=== PATIENT | male | born 1990 | race Hispanic/Latino ===

== ENCOUNTER 2018-05-29 09:08 | Emergency (ER) | payer BC ==
[2018-05-29 10:11] LABS: #Eosinphils 0.1 thou/uL (0.0-0.7); #Lymphocytes 1.6 thou/uL (1.20-3.40); #Monocytes 0.4 thou/uL (0.11-0.59); #Neutrophils 3.3 thou/uL (1.40-6.50); %Basophils 0.2 % (0.0-1.0); %Eosinophils 1.9 % (0.0-10.0); %Lymphocytes 30.1 % (21.0-51.0); %Monocytes 6.6 % (0.0-10.0); %Neutrophils 61.2 % (42.0-75.0); Hemoglobin 13.6 g/dL (14.0-18.0); Mean Corpuscular HGB CONC 33.5 g/dL (32.0-36.0); Mean Corpuscular Hemoglobin 28.9 pg (27.0-31.0); Mean Corpuscular Volume 86.2 fL (78.0-98.0); Mean Platelet Volume 6.5 fL (7.4-10.4); Platelet Count 281 thou/uL (130-400); RBC Distribution Width 13.2 % (11.5-14.5); Red Blood Cell (RBC) Count 4.69 mill/uL (4.70-6.10); White Blood Cell (WBC) Count 5.4 thou/uL (4.8-10.8)
[2018-05-29 10:23] LABS: ALT (SGPT) 77 U/L (8-55); AST (SGOT) 39 U/L (5-34); Albumin 4.3 g/dL (3.5-5.0); Alkaline Phosphatase 266 U/L (40-150); Anion Gap 15 mmol/L (10-20); BUN (Urea Nitrogen) 17 mg/dL (8.9-20.6); Bilirubin, Total 0.6 mg/dL (0.2-1.2); Calc. Creatinine Clearance 0 mL/min (70-130); Calcium 9.3 mg/dL (7.8-10.44); Carbon Dioxide 22 mmol/L (22-29); Chloride 103 mmol/L (98-107); Estimated GFR-MDRD Greater than 90; Glucose 99 mg/dL (70-105); Protein, Total 9.3 g/dL (6.0-8.3); Sodium 136 mmol/L (136-145)
[2018-05-29 10:24] LABS: Bilirubin Negative (Negative); Blood, Urine Negative (Negative); Clarity CLOUDY (Clear); Glucose, Urine (Dipstick) Negative (Negative); Leukocyte Negative (Negative); Nitrite Negative (Negative); Protein, Urine (Dipstick) 30 mg/dL (Neg-Trace); Specific Gravity, Urine 1.024 (1.002-1.036)
[2018-05-29 10:29] LABS: Bacteria/HPF None Seen HPF (None Seen); Hyaline Casts/LPF 0-3 HYALINE CAST LPF (0-3 Hyaline); RBC/HPF 0-3 HPF (0-3); Squamous Epithelial 0-3 HPF (0-3); WBC/HPF 0-3 HPF (0-3)
[2018-05-29 11:42] LABS: Syphilis Antibody Index 26.86 S/CO (<1.00 Non-Reactive)
[2018-05-29 12:17] LABS: HIV (1/2) Antibody/Antigen Reflxed Confirmation (NonReactive)
[2018-05-29] MEDS ORDERED: Bicillin LA 2.4 MILL.UNITS/4 ML SYRINGE ONE (13:54)
[2018-05-29 18:16] LABS: Syphilis Antibody REACTIVE (Nonreactive); Syphilis Titer 1:32 (Negative)
[2018-05-30 12:40] LABS: Reference Lab Name LABCORP
[2018-05-30 12:41] LABS: Ref Lab Test Ordered HIV PHENOSENSE GT
[2018-05-30 13:19] LABS: %CD4 (Helper/Inducer) 7.1 % (30.8-58.5); Absolute CD4 114 /uL (359-1519); Lymphocytes/Gated Cell Count 1.6 x10E3/uL (0.7-3.1); Total Lymphocyte 39 % (Not Estab.); WBC Total Count 4.2 x10E3/uL (3.4-10.8)
[2018-05-30 15:29] LABS: HIV 1 Antibody Multi-Spot Positive (Negative); HIV 2 Antibody Multi-Spot Negative (Negative); HIV Multi-spot Interp HIV-1 Positive (.)
[2018-05-31 21:09] LABS: LOG10 HIV-1 RNA 5.29 (.)
== END 2018-05-29 15:41 | disposition home or self-care (01) ==
LOC: ERS 09:08
DX: A53.9 Syphilis, unspecified (principal); B20 Human immunodeficiency virus [HIV] disease; Z79.899 Other long term (current) drug therapy
CPT/HCPCS: 36415; 80053; 81003; 81015; 85025; 85048; 86361; 86593; 86701; 86702; 86780; 87389; 87536; 96372; J0561

== ENCOUNTER 2019-05-06 15:41 | Emergency (ER) | payer BC ==
[2019-05-06] MEDS ORDERED: Famotidine 20 MG TAB ONE (16:22)
[2019-05-06] MEDS ORDERED: predniSONE 20 MG TAB ONE (16:22)
[2019-05-06] MEDS ORDERED: diphenhydrAMINE 25 MG CAP ONE (16:22)
== END 2019-05-06 17:31 | disposition home or self-care (01) ==
LOC: ERS 15:41
DX: T63.461A Toxic effect of venom of wasps, accidental (unintentional), initial encounter (principal)
CPT/HCPCS: 99283; J7512; Q0163